=== PATIENT | female | born 1985 | race Hispanic/Latino ===

== ENCOUNTER 2020-02-25 14:51 | Emergency (ER) | payer SELFPAY ==
[~2020-02-25] VITALS: Ht 157.5 cm; Wt 49.0 kg
[2020-02-25] MEDS ORDERED: LIDOCAINE VISC 2% SOLN 15 ML UDC PO ONE (15:45)
[2020-02-25] MEDS ORDERED: BELLADONNA ALK/PHENOBARBITAL 5 ML UDC PO ONE (15:45)
[2020-02-25] MEDS ORDERED: MAGNESIUM/ALUMINUM/SIMETHICONE 30 ML UDC PO ONE (15:45)
[2020-02-25 16:10] LABS: BASOPHILS % 0.6 % (0.0-1.0); EOSINOPHILS # (AUTO) 0.1 (0.0-0.4); EOSINOPHILS % 0.8 % (0.0-6.0); HEMATOCRIT 43.3 % (34.2-44.1); HEMOGLOBIN 14.2 g/dL (12.0-16.0); LYMPHOCYTES # (AUTO) 2.8 (1.0-3.2); LYMPHOCYTES % 38.6 % (18.0-39.1); MEAN CORPUSCULAR HEMOGLOBIN 31.1 pg (28-32); MEAN CORPUSCULAR HGB CONC 32.8 g/dL (31-35); MEAN CORPUSCULAR VOLUME 94.7 fL (81-99); MONOCYTES # (AUTO) 0.5 (0.2-0.8); MONOCYTES % 6.2 % (4.4-11.3); NEUTROPHILS # (AUTO) 3.9 (2.1-6.9); NEUTROPHILS % 53.7 % (38.7-80.0); PLATELET COUNT 241 x10e3/uL (140-360); RED BLOOD COUNT 4.57 x10e6/uL (3.6-5.1); RED CELL DISTRIBUTION WIDTH 12.7 % (11.7-14.4)
[2020-02-25 16:26] LABS: ANION GAP 15.4 mmol/L (8-16); BLOOD UREA NITROGEN 12 mg/dL (7-26); BUN/CREATININE RATIO 15 (6-25); CALCIUM 10.3 mg/dL (8.4-10.2); CARBON DIOXIDE 24 mmol/L (22-29); CHLORIDE 106 mmol/L (98-107); CREATINE KINASE 75 IU/L (29-168); CREATININE, SERUM 0.78 mg/dL (0.57-1.11); EST GLOMERULAR FILTRATION RATE > 60 ML/MIN (60-); GLUCOSE 106 mg/dL (74-118); POTASSIUM 3.4 mmol/L (3.5-5.1); SODIUM 142 mmol/L (136-145)
--- NOTE | 2020-02-25 17:07 | Diagnostic Imaging Report ---
EXAMINATION: CHEST SINGLE (PORTABLE) INDICATION: Chest pain COMPARISON: None FINDINGS: TUBES and LINES: None. LUNGS: Normal lung volumes. Lungs are clear. No consolidations. PLEURA: No pleural effusion or pneumothorax. HEART AND MEDIASTINUM: The cardiomediastinal silhouette is unremarkable. BONES AND SOFT TISSUES: No acute osseous lesion. Soft tissues are unremarkable. UPPER ABDOMEN: No free air under the diaphragm. IMPRESSION: No acute thoracic radiographic abnormality. Signed by: Leoncio Ramirez MD on 02/25/2020 5:04 PM
--- NOTE | 2020-02-25 17:17 | Emergency Department Note ---
History of Present Illnes History of Present Illness Chief Complaint: Chest Pain History of Present Illness This is a 34 year old female pt c/o chest tightness that started around 1300 immediately after eating spicy food, states that she has a hx of GERD amd takes Pepcid daily for indigestion, pt denies any family or personal hx of heart problems, pt states that she also started having palpitations. 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 Any updates have been documented here. Past Medical History Recent Fever: No Clinical Suspicion of Infectio: No New/Unexplained Change in Ment: No Past Medical History: GERD Past Surgical History: None Social History Smoking Cessation: Never Smoker Counseling Performed: No Alcohol Use: None Any Illegal Drug Use: No TB Exposure/Symptoms: No Physically hurt or threatened: No Family History Family history of heart diseas: No Other Any Pre-Existing Lines (PICC,: No Review of Systems Review of Systems Constitutional: Reports no symptoms EENTM: Reports no symptoms Cardiovascular: Reports as per HPI, Reports chest pain Respiratory: Reports no symptoms Gastrointestinal: Reports no symptoms Genitourinary: Reports no symptoms Musculoskeletal: Reports no symptoms Integumentary: Reports no symptoms Neurological: Reports no symptoms Psychological: Reports no symptoms Endocrine: Reports no symptoms Hematological/Lymphatic: Reports no symptoms Physical Exam Related Data Allergies: Coded Allergies: No Known Allergies (Unverified , 02/25/20) Triage Vital Signs Vital Signs Date Time Temp Pulse Resp B/P (MAP) Pulse Ox O2 Delivery O2 Flow Rate FiO2 02/25/20 15:27 98.3 75 18 144/83 100 Room Air Vital signs reviewed: Yes Physical Exam CONSTITUTIONAL Constitutional: Present well-developed, Present well-nourished HENT HENT: Present normocephalic, Present atraumatic, Present oropharynx clear/moist, Present nose normal HENT L/R: Present left ext ear normal, Present right ext ear normal EYES Eyes: Reports PERRL, Reports conjunctivae normal NECK Neck: Present ROM normal PULMONARY Pulmonary: Present effort normal, Present breath sounds normal CARDIOVASCULAR Cardiovascular: Present regular rhythm, Present heart sounds normal, Present capillary refill normal, Present normal rate GASTROINTESTINAL Abdominal: Present soft, Present nontender, Present bowel sounds normal GENITOURINARY Genitourinary: Present exam deferred SKIN Skin: Present warm, Present dry MUSCULOSKELETAL Musculoskeletal: Present ROM normal NEUROLOGICAL Neurological: Present alert, Present oriented x 3, Present no gross motor or sensory deficits PSYCHOLOGICAL Psychological: Present mood/affect normal, Present judgement normal Results Laboratory Result Diagram: 02/25/20 1542 02/25/20 1542 Laboratory Laboratory Tests Test 02/25/20 15:42 White Blood Count 7.22 x10e3/uL (4.8-10.8) Red Blood Count 4.57 x10e6/uL (3.6-5.1) Hemoglobin 14.2 g/dL (12.0-16.0) Hematocrit 43.3 % (34.2-44.1) Mean Corpuscular Volume 94.7 fL (81-99) Mean Corpuscular Hemoglobin 31.1 pg (28-32) Mean Corpuscular Hemoglobin Concent 32.8 g/dL (31-35) Red Cell Distribution Width 12.7 % (11.7-14.4) Platelet Count 241 x10e3/uL (140-360) Neutrophils (%) (Auto) 53.7 % (38.7-80.0) Lymphocytes (%) (Auto) 38.6 % (18.0-39.1) Monocytes (%) (Auto) 6.2 % (4.4-11.3) Eosinophils (%) (Auto) 0.8 % (0.0-6.0) Basophils (%) (Auto) 0.6 % (0.0-1.0) Neutrophils # (Auto) 3.9 (2.1-6.9) Lymphocytes # (Auto) 2.8 (1.0-3.2) Monocytes # (Auto) 0.5 (0.2-0.8) Eosinophils # (Auto) 0.1 (0.0-0.4) Basophils # (Auto) 0.0 (0.0-0.1) Absolute Immature Granulocyte (auto 0.01 x10e3/uL (0-0.1) D-Dimer Quantitative (PE/DVT) 0.21 ug/mLFEU (0.00-0.45) Sodium Level 142 mmol/L (136-145) Potassium Level 3.4 mmol/L (3.5-5.1) Chloride Level 106 mmol/L (98-107) Carbon Dioxide Level 24 mmol/L (22-29) Anion Gap 15.4 mmol/L (8-16) Blood Urea Nitrogen 12 mg/dL (7-26) Creatinine 0.78 mg/dL (0.57-1.11) Estimat Glomerular Filtration Rate > 60 ML/MIN (60-) BUN/Creatinine Ratio 15 (6-25) Glucose Level 106 mg/dL (74-118) Calcium Level 10.3 mg/dL (8.4-10.2) Creatine Kinase 75 IU/L (29-168) Creatine Kinase MB 0.40 ng/mL (0-5.0) Troponin I < 0.001 ng/mL (0-0.300) Human Chorionic Gonadotropin, Qual Negative (NEGATIVE) Lab results reviewed: Yes Imaging Imaging results reviewed: Yes Procedures 12 Lead ECG Interpretation ECG Interpretation : ECG: ECG 1 Animated Cartoons Painter: Interpreted by ED physician Date: Feb 25, 2020 Time: 15:33 Rhythm: sinus rhythm Rate: normal BPM: 84 QRS axis: normal ST segments normal: Yes T waves normal: Yes Clinical Impression: normal ECG Assessment & Plan Medical Decision Making MDM chest pain, likely GERD - check cbc, chem, ecg, cardiacs, d-dimer, cxr - r/o stemi/nstemi, pulm embolus, pneumonia Reassessment Reassessment better with Gi cocktail - DC home, diet restrictions, F/U PCP and GI Assessment & Plan Final Impression: (1) GERD (gastroesophageal reflux disease) (2) Gastritis Depart Disposition: HOME, SELF-CARE Last Vital Signs Date Time Temp Pulse Resp B/P (MAP) Pulse Ox O2 Delivery O2 Flow Rate FiO2 02/25/20 15:27 98.3 75 18 144/83 100 Room Air Medications in the ED Magnesium Aluminum Silicate 30 ml ONCE ONCE PO ; Start 02/25/20 at 15:45; Stop 02/25/20 at 15:46; Status DC Belladonna Alkaloids/ Phenobarbital 10 ml ONCE ONCE PO ; Start 02/25/20 at 15:45; Stop 02/25/20 at 15:46; Status DC Lidocaine HCl 5 ml ONCE ONCE PO ; Start 02/25/20 at 15:45; Stop 02/25/20 at 15:46; Status DC ARPAN MALAVE MD Feb 25, 2020 17:17
[2020-02-25 17:33] VITALS: BP 127/71
== END 2020-02-25 17:35 | disposition home or self-care (01) ==
LOC: ER 15:40
DX: R07.89 Other chest pain (principal); K21.9 Gastro-esophageal reflux disease without esophagitis; K29.70 Gastritis, unspecified, without bleeding
CPT/HCPCS: 36415; 71045; 80048; 82550; 82553; 84484; 84702; 85025; 85379; 93005; 99284